=== PATIENT | male | born 1975 | race Caucasian/White ===

== ENCOUNTER 2020-05-27 21:06 | Emergency (ER) | payer OTHER ==
[~2020-05-27] VITALS: Ht 170.2 cm; Wt 99.8 kg
[2020-05-27 21:11] VITALS: BP 119/73
[2020-05-27] MEDS ORDERED: ACETAMINOPHEN EXTRA STRENGTH 500 MG TAB PO ONE (21:25)
[2020-05-27] MEDS ORDERED: HYDROcodone/APAP 5/325 MG 1 TAB TAB PO ONE (22:40)
[2020-05-27 22:53] VITALS: BP 119/73
== END 2020-05-27 22:53 | disposition home or self-care (01) ==
LOC: MED 21:06
DX: S22.31XA Fracture of one rib, right side, initial encounter for closed fracture (principal); W18.39XA Other fall on same level, initial encounter; Y93.89 Activity, other specified; Y92.89 Other specified places as the place of occurrence of the external cause; Y99.8 Other external cause status
CPT/HCPCS: 71101; 99283